=== PATIENT | female | born 1970 | race Caucasian/White ===

== ENCOUNTER → 2020-03-01 | Outpatient (CLI) | payer BC | LOC: KOH-I 09:57 | DX: R05 Cough (principal); R91.8 Other nonspecific abnormal finding of lung field | CPT/HCPCS: 71046 ==

== ENCOUNTER → 2020-03-22 | Outpatient (CLI) | payer BC | LOC: KOH-I 11:02 | DX: J18.9 Pneumonia, unspecified organism (principal) | CPT/HCPCS: 71046 ==

== ENCOUNTER → 2021-04-05 | Outpatient (CLI) | payer BC | LOC: KOH-I 16:39 | DX: R91.8 Other nonspecific abnormal finding of lung field (principal) | CPT/HCPCS: 71046 ==

== ENCOUNTER → 2021-06-14 | Outpatient (CLI) | payer BC | LOC: HEART 5 10:14 | DX: R93.89 Abnormal findings on diagnostic imaging of other specified body structures (principal) | CPT/HCPCS: 94010; 94729 ==